=== PATIENT | female | born 1985 | race Native Hawaiian/Other Pacific Islander ===

== ENCOUNTER 2017-03-31 16:07 | Outpatient (CLI) | payer OTHER | END 2017-03-31 16:27 | disposition short-term general hospital (02) | LOC: AMB 16:07 | DX: G43.809 Other migraine, not intractable, without status migrainosus (principal) | CPT/HCPCS: A0425; A0427 ==

== ENCOUNTER 2017-03-31 16:37 | Emergency (ER) | payer OTHER ==
[~2017-03-31] VITALS: Ht 162.6 cm; Wt 49.9 kg
[2017-03-31 16:30] VITALS: TEMP 98
[2017-03-31 17:39] LABS: PLATELET COUNT 286 K/uL (152-353)
[2017-03-31 17:48] LABS: POTASSIUM 3.9 mmol/L (3.6-5.2); SODIUM 143 mmol/L (136-145)
[2017-03-31 18:30] VITALS: BP 114/57
== END 2017-03-31 18:42 | disposition home or self-care (01) ==
LOC: ED 16:37
PROVIDERS: Emergency Medicine
DX: R51 Headache (principal)
CPT/HCPCS: 36415; 80053; 80307; 81000; 81025; 85027; 96365; 96375; 99284; G0479; J1200; J1885; J2550

== ENCOUNTER 2020-12-22 16:24 | Emergency (ER) | payer OTHER ==
[~2020-12-22] VITALS: Ht 160 cm; Wt 47.6 kg
[2020-12-22 21:00] VITALS: BP 124/77; TEMP 98.3
== END 2020-12-22 21:00 | disposition home or self-care (01) ==
LOC: ED 16:24
DX: J18.9 Pneumonia, unspecified organism (principal); F17.210 Nicotine dependence, cigarettes, uncomplicated; Z03.818 Encounter for observation for suspected exposure to other biological agents ruled out
CPT/HCPCS: 87502; 87635; 87651; 99283; U0003

== ENCOUNTER 2022-07-20 13:18 | Emergency (ER) | payer OTHER ==
[~2022-07-20] VITALS: Ht 157.5 cm; Wt 52.2 kg
[2022-07-20 13:18] VITALS: BP 153/95; TEMP 98.1
== END 2022-07-20 14:15 | disposition home or self-care (01) ==
LOC: ED 13:18
DX: K04.7 Periapical abscess without sinus (principal); R22.0 Localized swelling, mass and lump, head
CPT/HCPCS: 96372; 99283; J1885; J2175; J2405

== ENCOUNTER 2022-09-17 10:31 | Emergency (ER) | payer OTHER ==
[~2022-09-17] VITALS: Ht 157.5 cm; Wt 52.2 kg
== END 2022-09-17 11:25 | disposition home or self-care (01) ==
LOC: ED 10:31
DX: K02.9 Dental caries, unspecified (principal)
CPT/HCPCS: 96372; 99283; J1885

== ENCOUNTER 2022-12-02 18:08 | Emergency (ER) | payer OTHER ==
[~2022-12-02] VITALS: Ht 160 cm; Wt 52.2 kg
[2022-12-02 19:40] VITALS: BP 164/96; TEMP 98
== END 2022-12-02 19:11 | disposition home or self-care (01) ==
LOC: ED 18:08
DX: K02.9 Dental caries, unspecified (principal)
CPT/HCPCS: 96372; 99283; J1885